=== PATIENT | female | born 1960 | race Hispanic/Latino ===

== ENCOUNTER 2017-02-01 22:05 | Emergency (ER) | payer OTHER ==
[2017-02-01 22:20] VITALS: O2SAT 100
[2017-02-01] MEDS ORDERED: KETOROLAC TROMETHAMINE INJ 60 MG/2 ML VIAL IM ONE (22:25)
[2017-02-01] MEDS ORDERED: ORPHENADRINE CITRATE 30 MG/ML AMP IM ONE (22:25)
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
[2017-02-02 00:18] VITALS: BP 122/73; TEMP 97.5
== END 2017-02-02 00:19 | disposition home or self-care (01) ==
LOC: ER 22:05
DX: S16.1XXA Strain of muscle, fascia and tendon at neck level, initial encounter (principal); S29.012A Strain of muscle and tendon of back wall of thorax, initial encounter; R51 Headache; V43.52XA Car driver injured in collision with other type car in traffic accident, initial encounter; Y92.410 Unspecified street and highway as the place of occurrence of the external cause
CPT/HCPCS: 70450; 72125; 72128; J1885; J2360